=== PATIENT | male | born 2005 | race Caucasian/White ===

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

== ENCOUNTER 2025-04-30 10:12 | Emergency (ER) | payer BC, SELFPAY ==
[2025-04-30 10:21] VITALS: BP 112/79; PULSE 70; RESP 18; TEMP 36.8; O2SAT 100; BMI 23.3
--- NOTE | 2025-04-30 10:23 | ED_ITS ---
<Statement entered by Nichole Acosta MD - 04/30/25 15:35> I was consulted by the JENNIFER, and we discussed the complexity of the problems being addressed. I approved the treatment and management plan for this patient's care in the emergency department, thus performing a substantive portion of the medical decision making. Nichole Acosta MD, DA, FACEP Discharge Plan Disposition Patient Disposition: Home, Self-Care Condition: Good Prescriptions Prescriptions: New epinephrine [EpiPen] 0.3 mg/0.3 mL auto-injector 0.3 mg IM Q10M PRN (Reason: anaphylaxis) Qty: 1 0RF Rx Instructions: for 2 doses Referrals Follow up/Referrals: Provider,Referral, MD [Primary Care Provider, Medical] - See instructions Activity Restrictions/Add. Instructions Additional Instructions/Restrictions: Please return to the emergency department with any worsening signs or symptoms, please utilize [id number]-[id number] antihistamine such as Benadryl, Claritin, Zyr kenn, as needed for symptomatic relief. Can utilize [id number] creams as needed for symptomatic relief. Please follow-up with your family doctor. Clinical Impressions Clinical Impression: Allergic contact dermatitis Instructions Patient Instructions: DI for Contact Dermatitis, DI for General Allergic Reactions Print Language Print Language: [place]itanian Discharge ED Provider: Nichole Acosta General Adult HPI General Chief complaint: Skin/Abscess/Foreign Body Stated complaint: Rash on both arms Time Seen by Provider: 04/30/25 10:14 Mode of Arrival: Ambulatory Source of Information: Patient Limitations: No Limitations History of Present Illness HPI narrative: 19-year-old male presents to the emergency department at the request of his employer, patient noticed a rash that is located on bilateral arms, more on the volar surface of arms and wrist, spares the palms, no other areas affected, no genitourinary involvement, it is. 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 Initial triage vitals are grossly unremarkable. No other recent sick contacts/sick exposures Onset (ago): hour(s) Related Data Previous Rx's ?Medication ?Instructions ?Recorded epinephrine 0.3 mg/0.3 mL 0.3 mg (0.3 mL) IM Q10M PRN 04/30/25 injection, auto-injector (EpiPen) anaphylaxis #1 ea Allergies Allergy/AdvReac Type Severity Reaction Status Date / Time No Known Allergies Allergy Verified 10/22/23 14:48 [facility] Disclaimer: The information contained in this section may have been updated after the patient was seen, as this information can be updated by other users. Medical History No significant past medical history Surgical History Hx of myringotomy Family History (Updated 10/18/23 @ 11:01 by Nikhil Pizano) Other No significant family history Social History (Updated 10/18/23 @ 11:02 by Nikhil Pizano) Smoking Status: Current every day smoker alcohol intake: never current occupational status: employed Travel in the last 8 weeks?: None Other Medical History Have you received the Flu Vaccine for this season: No Have you received the Pneumonia Vaccine: No ROS Obtained: Yes All systems reviewed & no additional complaints except as documented Physical Exam General General appearance: alert and in no apparent distress Head Head exam: atraumatic and normocephalic Eye Eye exam: Present PERRL and EOMI ENT ENT exam: Present normal exam, normal oropharynx and mucous membranes moist Neck Neck exam: Present normal inspection Chest Chest inspection: Present normal inspection and symmetric chest wall rise Respiratory Respiratory exam: Present normal lung sounds bilaterally; Absent respiratory distress Cardiovascular Cardiovascular exam: Present regular rate and normal rhythm Abdominal Exam Abdominal exam: Present soft; Absent tenderness Extremities Exam Extremities exam: Present normal inspection Neurological Exam Neurological exam: Present alert and oriented X3 Psychiatric Psychiatric exam: Present normal affect Skin Skin exam: Present warm, dry, rash, erythema and other (Minimal non-raised maculopapular rash, with some wheal formation noted to bilateral arms along the volar surface, lesions are blanchable, no pain to palpation, no hide the touch sensation) Medical Decision Making Medical Records Medical records reviewed: Yes I reviewed the patient's medical records. Screening: Per USPSTF and CDC recommendations, given the prevalence of disease in our region, it is our hospital?s policy to screen for HIV and viral Hepatitis for all patients aged 18 and over and those with ongoing risk factors. [place] Inquiry Pt receiving controlled substance: No [place] was queried for this patient: No Vital Signs: 04/30/25 10:21 Temperature 98.2 F Temperature Source Oral Pulse Rate [Right] 70 Respiratory Rate 18 Blood Pressure [Right Arm] 112/79 Blood Pressure Mean [Right Arm] 90 02 Sat by Pulse Oximetry 100 Oxygen Delivery Method Room Air Orders (Tests/Meds): ED MEDICATIONS Generic Name Dose Route Start Last Admin Trade Name Freq PRN Reason Stop Dose Admin Diphenhydramine HCl 50 mg 04/30/25 10:22 Diphenhydramine 50mg Capsule PO 04/30/25 10:23 ONCE ONE Medical Decision Narrative: 19-year-old male presents to the emergency department with a rash on bilateral forearms, differential diagnosis include but not limited to, allergic contact dermatitis, irritant contact dermatitis, toxendrome dermatitis, hives/wheals, hypersensitivity reaction Will give the patient 50 mg p.o. Benadryl for symptomatic relief, suspect mild allergic reaction versus hypersensitivity reaction versus irritant contact dermatitis, as the rash is confined to the bilateral forearms, patient works in a factory, but no known environmental exposures, no signs of anaphylaxis, as patient's symptomatology is going on for quite some time, however will send patient home with EpiPen to use at home if needed, patient does have somewhat of an atopic history. Patient will need to follow-up with PCP, strict ED return precautions were given. Patient and family member voiced understanding and agreement with current treatment plan/discharge plan. Critical Care Critical Care Time Critical Care Time: No
[2025-04-30] MEDS: diphenhydrAMINE 50MG CAPSULE 50 MG PO (10:25)
[2025-04-30 10:30] VITALS: BP 103/73; PULSE 69; O2SAT 98
[2025-04-30 10:45] VITALS: BP 103/73; PULSE 65; RESP 17; TEMP 36.7; O2SAT 96
== END 2025-04-30 10:47 | disposition home or self-care (01) ==
PROVIDERS: Emergency Provider Student in an Organized Health Care Education/Training Program
DX: L23.9 Allergic contact dermatitis, unspecified cause (principal)
CPT/HCPCS: 99283